=== PATIENT | male | born 1990 | race Caucasian/White ===

== ENCOUNTER → 2020-12-12 | Outpatient (CLI) | payer OTHER ==
--- NOTE | 2020-12-12 12:37 | Diagnostic Imaging Report ---
PROCEDURE: CT left lower extremity without contrast. TECHNIQUE: Multiple contiguous axial images were obtained through the left lower extremity without the use of intravenous contrast. Sagittal and coronal reformations were then performed. Auto Exposure Controls were utilized during the CT exam to meet ALARA standards for radiation dose reduction. INDICATION: Left leg swelling. Trauma, fall off a ladder two weeks ago. COMPARISON: None available. FINDINGS: Bones: No acute or healing fracture. No osteochondral lesion is present. Soft tissues: There is a loculated subcutaneous fluid collection in the posterior and medial aspect of the knee that measures 9.5 x 3.4 x 12.7 cm. The underlying pes anserine musculature and semimembrinosis are intact. No knee joint effusion. No mineralized intra-articular bodies. The ACL and PCL are grossly intact. IMPRESSION: 1. No acute or healing fracture about the knee. 2. Large subcutaneous fluid collection in the posterior medial aspect of the lower leg is likely due to resolving hematoma. Dictated by: Dictated on workstation # [id number]
== END ==
LOC: RAD 11:30
PROVIDERS: ATTEND Nurse Practitioner Family
DX: Z02.89 Encounter for other administrative examinations (principal); Z04.2 Encounter for examination and observation following work accident; R22.42 Localized swelling, mass and lump, left lower limb; M25.562 Pain in left knee
CPT/HCPCS: 73700

== ENCOUNTER 2021-03-02 05:29 | Outpatient (RCR) | payer BC ==
[~2021-03-02] VITALS: Ht 193 cm; Wt 127.9 kg
[~2021-03-02 05:29] MED LIST: LISI10TA25 PO; PANT40GR PO; VNL75T PO
== END 2021-03-02 10:36 | disposition home or self-care (01) ==
LOC: PREOP 05:29
PROVIDERS: ATTEND Surgery
DX: Z01.818 Encounter for other preprocedural examination (principal); K21.9 Gastro-esophageal reflux disease without esophagitis; Z20.822 Contact with and (suspected) exposure to COVID-19
CPT/HCPCS: 87635

== ENCOUNTER 2021-03-04 13:04 | Day surgery (SDC) | payer BC ==
[2021-03-04] VITALS (11 sets, daily range): BP systolic 111–148; BP diastolic 55–83
[~2021-03-04] VITALS: Ht 193 cm; Wt 128.0 kg
--- NOTE | 2021-03-04 13:11 | Conscious Sedation/ASA ---
Conscious Sedation Pre-Proced Time 13:00 ASA Score 2 For ASA 3 and 4: Consider anesthesia and medical clearance. Also, for patients with a history of failed moderate sedation consider anesthesia. Airway Lungs Heart ASA score ASA 1: a normal healthy patient ASA 2: a patient with a mild systemic disease (mid diabetes, controlled hypertension, obesity ASA 3: a patient with a severe systemic disease that limits activity (angina, COPD, prior Myocardial infarction) ASA 4: a patient with an incapacitating disease that is a constant threat to life (CHF, renal failure) ASA 5: a moribund patient not expected to survive 24 hrs. (ruptured aneurysm) ASA 6: a declared brain- patient whose organs are being harvested. For emergent operations, add the letter E after the classification Mallampati Classification Grade 2 Sedation Plan Analgesia, Amnesia, Plan communicated to team members, Discussed options with patient/fam, Discussed risks with patient/fam The patient is an appropriate candidate to undergo the planned procedure, sedation, and anesthesia. The patient immediately re-assessed prior to indication. MAYUR CAPELLAN MD Mar 04, 2021 13:11
--- NOTE | 2021-03-04 13:12 | Progress Note-Pre Operative ---
Pre-Operative Progress Note H&P Reviewed The H&P was reviewed, patient examined and no changes noted. Date Seen by Provider: Mar 04, 2021 Time Seen by Provider: 13:00 Date H&P Reviewed: Mar 04, 2021 Time H&P Reviewed: 13:00 Pre-Operative Diagnosis: MAYUR BRADLEY MD Mar 04, 2021 13:12
[2021-03-04] MEDS ORDERED: NS IV 500 ML 500 ML ONE (13:13)
[2021-03-04] MEDS ORDERED: fentaNYL INJ 100 MCG/2 ML AMP IVP ONE (13:15)
[2021-03-04] MEDS ORDERED: ONDANSETRON 4 MG (ZOFRAN) ORAL DISSOLVE TAB PO PRN (13:15)
[2021-03-04] MEDS ORDERED: ONDANSETRON 4 MG/2 ML (SDV) Z0FRAN IVP PRN (13:15)
[2021-03-04] MEDS ORDERED: LIDOCAINE JELLY 2% 6 ML SYRINGE MM PRN (13:15)
[2021-03-04] MEDS ORDERED: MIDAZOLAM 5 MG/5 ML (VERSED) VIAL IV ONE (13:15)
[2021-03-04] MEDS ORDERED: HURRICAINE EXT TUBE (BENZOCAINE) XX PRN (13:15)
--- NOTE | 2021-03-04 13:15 | Discharge Inst-Surgical ---
D/C Lap Instructions-MARILIA New, Converted, or Re-Newed RX: RX on Chart MAYUR CAPELLAN MD Mar 04, 2021 13:15
[2021-03-04] MEDS: NS IV 500 ML 500 ML IV PRN ×2 (13:37→15:50)
[2021-03-04] MEDS ORDERED: fentaNYL INJ 100 MCG/2 ML AMP ONE ×2 (15:38→15:54)
[2021-03-04] MEDS ORDERED: MIDAZOLAM 5 MG/5 ML (VERSED) VIAL ONE ×2 (15:39→15:54)
--- NOTE | 2021-03-04 16:33 | Progress Note-Post Operative ---
Post-Operative Progess Note Surgeon (s)/Wood Heel Attacher (s) Surgeon MAYUR CAPELLAN MD Wood Heel Attacher: none Pre-Operative Diagnosis GERD Post-Operative Diagnosis reflux esophagitis(stage 2), small-moderate HH(2.5-3cm), moderate gastritis. Procedure & Operative Findings Date of Procedure 03/04/21 Procedure Performed/Findings EGD with bx. Anesthesia Type cs Estimated Blood Loss Estimated blood loss (mL): minimal Specimens/Packing Specimens Removed ge jxn, antrum MAYUR CAPELLAN MD Mar 04, 2021 16:33
--- NOTE | 2021-03-04 23:31 | OPERATIVE REPORT ---
DATE OF SERVICE: 03/04/2021 ATTENDING PRIMARY CARE PHYSICIAN: Dr. Luis Gamble. PREOPERATIVE DIAGNOSIS: Gastroesophageal reflux disease. POSTOPERATIVE DIAGNOSES: Reflux esophagitis stage II, small to moderate size hiatal hernia approximately 2.5 to 3 cm in size, mild to moderate gastritis. No distal obstructions. PROCEDURE: EGD with biopsy. SURGEON: Mayur Capellan MD. ANESTHESIA: Conscious sedation. ESTIMATED BLOOD LOSS: Minimal. FINDINGS: Reflux esophagitis stage II, small to moderate size hiatal hernia approximately 2.5 to 3 cm in size, mild to moderate gastritis. No distal obstructions. DISPOSITION: The patient tolerated the procedure well. INDICATIONS: The patient is a 30-year-old male who states that he has had epigastric burning sensation and symptoms of reflux for quite some time now. He was placed on Protonix 2 years ago and proceeded with a trial of discontinuation of the medication for 2 weeks. However, his symptoms quickly returned. He does not report any nausea, no vomiting as well as no hematemesis, no coffee ground emesis. He also denies any diarrhea nor constipation as well as no red blood per rectum nor any dark tarry stools. DESCRIPTION OF PROCEDURE: The patient was brought to the endoscopy suite, laid in the left lateral decubitus position. After adequate IV pain and sedative medications and conscious sedation anesthesia, the mouthpiece was applied. The endoscope was placed in the mouth, visualizing the pharynx and hypopharyngeal region. Vocal cords, epiglottis and vallecula identified and appeared to be normal. The endoscope was then gently intubated to the esophageal opening and esophagus insufflated. The endoscope was advanced to the first, second and third portion of esophagus to the level of the GE junction, a reflux esophagitis stage II identified. No ulcers or strictures identified in this region. A biopsy was taken with forceps with visualization of good hemostasis. The endoscope was then advanced in the stomach and endoscope retroflexed, visualizing a small to moderate size hiatal hernia approximately 2.5 to 3 cm in size. There was also a mild to moderate gastritis identified. No formal ulcerations, polyps, or any neoplasms. A biopsy was taken of the antrum to rule out H. pylori with visualization of good hemostasis. The endoscope was then advanced to the pylorus and the first and second portion of the duodenum, which appeared normal with no distal obstructions. The endoscope was then slowly withdrawn while taking a second look and suctioning of residual air with no additional findings. The patient tolerated the procedure well. We will recommend the necessary lifestyle and diet accommodation including small and more frequent meals, avoidance of eating at night as well as head elevation while lying supine. He also needs to avoid caffeinated beverages, spicy, greasy and acidic foods. Any type of regularly scheduled diet and exercise regimen for weight loss and maintenance would be beneficial because his current body mass index is 34.3 and if he can reduce this this will dramatically help with his reflux type of symptoms. For now, we want him to continue with the Protonix 40 mg daily; however, also start omeprazole 40 mg daily to be taken at a different time of the day as well. If he is medically compliant and does all the necessary lifestyle and dietary accommodation including weight loss and he continues to have symptoms of reflux despite maximal medical therapy, then he may be a candidate for hiatal hernia repair; however, we would want to make sure that his body mass index was below a certain point and get an esophageal manometry to make to rule out an esophageal dysmotility disorder. Job ID: [id number] DocumentID: [id number] Dictated Date: 03/04/2021 16:11:59 Survival Equipment Repairer Date: 03/04/2021 23:31:03 Dictated By: MAYUR CAPELLAN MD
== END 2021-03-04 16:45 | disposition home or self-care (01) ==
LOC: ENDO 13:04
PROVIDERS: ATTEND Surgery
DX: K21.00 Gastro-esophageal reflux disease with esophagitis, without bleeding (principal); K44.9 Diaphragmatic hernia without obstruction or gangrene; K29.50 Unspecified chronic gastritis without bleeding; I10 Essential (primary) hypertension; F32.9 Major depressive disorder, single episode, unspecified; Z87.891 Personal history of nicotine dependence; Z79.899 Other long term (current) drug therapy
CPT/HCPCS: 88305